=== PATIENT | male | born 1975 | race Hispanic/Latino ===

== ENCOUNTER 2020-04-25 22:04 | Observation (INO) | payer OTHER, MEDICARE ==
[2020-04-25 22:24] LABS: BASOPHILS % (AUTO) 0.6 % (0.0-5.0); EOSINOPHILS % (AUTO) 2.2 % (0.0-8.0); HEMATOCRIT 49.2 % (42-54); LYMPHOCYTES % (AUTO) 19.1 % (21.0-51.0); MEAN CORPUSCULAR HEMOGLOBIN 30.2 pg (27.0-33.0); MEAN CORPUSCULAR HGB CONC 32.5 g/dL (32.0-36.0); MEAN CORPUSCULAR VOLUME 92.8 fL (79-99); MONOCYTES % (AUTO) 10.5 % (3.0-13.0); NEUTROPHILS % (AUTO) 66.5 % (40.0-77.0); PLATELET COUNT (AUTO) 228 K/uL (130-400); RED CELL DISTRIBUTION WIDTH 12.7 % (11.0-15.5); WHITE BLOOD COUNT (AUTO) 8.5 K/uL (4.8-10.8)
[2020-04-25 22:35] LABS: CREATININE 1.1 mg/dL (0.5-1.5); POTASSIUM 4.2 mmol/L (3.5-5.1)
[2020-04-25 22:36] LABS: ABG HCO3 23.8 mmol/L (21.0-28.0); ABG OXYGEN SATURATION 94.9 % (95.0-99.0); ABG PCO2 40 mmHg (35-48)
[2020-04-25 22:37] LABS: INR 0.9 (0.85-1.15); PARTIAL THROMBOPLASTIN TIME 28.5 SEC (26.3-35.5); PROTHROMBIN TIME 9.8 SEC (9.6-11.6)
[2020-04-25 22:39] LABS: ALBUMIN 3.5 g/dL (3.5-5.0); BILIRUBIN,TOTAL 0.2 mg/dL (0.2-1.0); TOTAL PROTEIN, SERUM 7.4 g/dL (6.0-8.3)
[2020-04-25] MEDS ORDERED: CLOPIDOGREL BISULFATE 300 MG TAB ONE (23:47)
[2020-04-25] MEDS ORDERED: CEFTRIAXONE SODIUM 1 GM ONE (23:48)
[2020-04-25] MEDS ORDERED: AZITHROMYCIN 500MG+NS 250ML 250 ML IV ONE (23:48)
[2020-04-26] MEDS ORDERED: MORPHINE SULFATE 2 MG/ML 1ML SYG IV PRN
[2020-04-26] MEDS ORDERED: ONDANSETRON HCL 4 MG/2 ML VIAL IV PRN
[2020-04-26] MEDS ORDERED: ACETAMINOPHEN 325 MG TAB PO PRN ×2
[2020-04-26] MEDS ORDERED: LACTULOSE 20 GM/30 ML UDCUP PO PRN
[2020-04-26] MEDS ORDERED: NITROGLYCERIN 0.4 MG SL TAB SL PRN
[2020-04-26 00:14] LABS: APPEARANCE,URINE Clear (CLEAR); BILIRUBIN,URINE Negative (NEGATIVE); COLOR,URINE Yellow (YELLOW); GLUCOSE, URINE (UA) Negative (NEGATIVE); KETONES,URINE Negative (NEGATIVE); LEUKOCYTE ESTERASE ,URINE Negative (NEGATIVE); NITRATE,URINE Negative (NEGATIVE); OCCULT BLOOD,URINE Negative (NEGATIVE); PROTEIN,URINE Negative (NEGATIVE); UROBILINOGEN,URINE 0.2 mg/dL (0.2-1.0)
[2020-04-26 00:27] LABS: AMPHET/METH SCREEN,URINE NEGATIVE (NEGATIVE); BARBITURATE SCREEN, URINE NEGATIVE (NEGATIVE); BENZODIAZEPINES SCREEN,URINE NEGATIVE (NEGATIVE); CANNABINOID SCREEN,URINE NEGATIVE (NEGATIVE); COCAINE SCREEN,URINE NEGATIVE (NEGATIVE); OPIATE SCREEN,URINE NEGATIVE (NEGATIVE); PHENCYCLIDINE SCREEN,URINE NEGATIVE (NEGATIVE)
[2020-04-26 01:14] LABS: HEMOGLOBIN A1C 6.1 % (4.0-6.0)
[2020-04-26 01:26] LABS: THYROID STIMULATING HORMONE 0.84 uIU/mL (0.36-3.74)
[2020-04-26 05:33] LABS: BASOPHILS % (AUTO) 0.6 % (0.0-5.0); EOSINOPHILS % (AUTO) 2.2 % (0.0-8.0); HEMATOCRIT 47.1 % (42-54); LYMPHOCYTES % (AUTO) 16.8 % (21.0-51.0); MEAN CORPUSCULAR HEMOGLOBIN 30.4 pg (27.0-33.0); MEAN CORPUSCULAR HGB CONC 32.7 g/dL (32.0-36.0); MEAN CORPUSCULAR VOLUME 92.9 fL (79-99); MONOCYTES % (AUTO) 8.6 % (3.0-13.0); NEUTROPHILS % (AUTO) 70.6 % (40.0-77.0); PLATELET COUNT (AUTO) 201 K/uL (130-400); RED BLOOD CELL COUNT(AUTO) 5.07 MIL/uL (4.50-6.20); RED CELL DISTRIBUTION WIDTH 12.6 % (11.0-15.5); WHITE BLOOD COUNT (AUTO) 8.5 K/uL (4.8-10.8)
[2020-04-26 05:45] LABS: POTASSIUM 3.8 mmol/L (3.5-5.1)
[2020-04-26] MEDS ORDERED: ASPIRIN 81MG TAB.CHEW ONE (07:24)
[2020-04-26] MEDS ORDERED: METOPROLOL TARTRATE 25 MG TAB ONE (07:25)
[2020-04-26] MEDS ORDERED: FAMOTIDINE 20MG TAB 20 MG TAB ONE (07:25)
[2020-04-26] MEDS ORDERED: CLOPIDOGREL BISULFATE 75 MG TAB ONE (07:25)
[2020-04-26] MEDS ORDERED: CLOPIDOGREL BISULFATE 75 MG TAB PO SCH (09:00)
[2020-04-26] MEDS ORDERED: ASPIRIN 325 MG TABLET PO SCH (09:00)
[2020-04-26] MEDS ORDERED: FAMOTIDINE 20MG TAB 20 MG TAB PO SCH (09:00)
[2020-04-26] MEDS ORDERED: METOPROLOL TARTRATE 25 MG TAB PO SCH (09:00)
[2020-04-26] MEDS ORDERED: ATORVASTATIN CALCIUM 20 MG TABLET PO SCH (21:00)
== END 2020-04-26 10:59 | disposition left against medical advice (07) ==
LOC: EDH 22:04 → EDHIP 23:59
PROVIDERS: ADMIT Family Medicine; ATTEND Family Medicine
DX: R07.89 Other chest pain (principal); Z20.828 Contact with and (suspected) exposure to other viral communicable diseases; R06.03 Acute respiratory distress; R09.02 Hypoxemia; I11.0 Hypertensive heart disease with heart failure; I50.9 Heart failure, unspecified; E66.01 Morbid (severe) obesity due to excess calories; E11.9 Type 2 diabetes mellitus without complications; I25.2 Old myocardial infarction; F41.9 Anxiety disorder, unspecified; F32.9 Major depressive disorder, single episode, unspecified; F17.210 Nicotine dependence, cigarettes, uncomplicated; Z79.899 Other long term (current) drug therapy
CPT/HCPCS: 36415 ×2; 36600; 71045; 80048; 80053; 80061; 80305; 81003; 82550; 82803; 82948; 83036; 83605; 83690; 83880; 84443; 84484 ×4; 85025 ×2; 85610; 85730; 87040 ×2; 87426; 87804 ×2; 93005 ×3; 99291; G0378 ×11; J0456; J0696; U0003

== ENCOUNTER → 2020-06-21 | Outpatient (CLI) | payer OTHER, MEDICARE | END | disposition home or self-care (01) | LOC: SLP 20:58 | PROVIDERS: ATTEND Internal Medicine | DX: G47.33 Obstructive sleep apnea (adult) (pediatric) (principal); R40.0 Somnolence | CPT/HCPCS: 95810 ==

== ENCOUNTER → 2020-08-01 | Outpatient (CLI) | payer MEDICARE, OTHER | END | disposition home or self-care (01) | LOC: SHCH 13:56 | PROVIDERS: ATTEND Internal Medicine | DX: I50.9 Heart failure, unspecified (principal) | CPT/HCPCS: 93306; 93356 ==

== ENCOUNTER 2020-10-16 07:05 | Observation (INO) | payer OTHER ==
[2020-10-14 15:40] LABS: BASOPHILS % (AUTO) 0.5 % (0.0-5.0); EOSINOPHILS % (AUTO) 2.5 % (0.0-8.0); HEMATOCRIT 51.7 % (42-54); LYMPHOCYTES % (AUTO) 20.6 % (21.0-51.0); MEAN CORPUSCULAR HEMOGLOBIN 30.5 pg (27.0-33.0); MEAN CORPUSCULAR HGB CONC 32.7 g/dL (32.0-36.0); MEAN CORPUSCULAR VOLUME 93.2 fL (79-99); MONOCYTES % (AUTO) 9.5 % (3.0-13.0); NEUTROPHILS % (AUTO) 65.9 % (40.0-77.0); PLATELET COUNT (AUTO) 221 K/uL (130-400); RED BLOOD CELL COUNT(AUTO) 5.55 MIL/uL (4.50-6.20); WHITE BLOOD COUNT (AUTO) 8.3 K/uL (4.8-10.8)
[2020-10-14 15:48] LABS: CREATININE 1.4 mg/dL (0.5-1.5); POTASSIUM 4.1 mmol/L (3.5-5.1)
[2020-10-14 15:50] LABS: PROTHROMBIN TIME 10.9 SEC (9.6-11.6)
[2020-10-14 15:51] LABS: PARTIAL THROMBOPLASTIN TIME 28.3 SEC (26.3-35.5)
[~2020-10-16] VITALS: Ht 172.7 cm; Wt 190.5 kg
[2020-10-16] VITALS (26 sets, daily range): BP systolic 14–182; BP diastolic 48–100
[2020-10-16] MEDS: CEFAZOLIN SODIUM 1 GM VIAL IVP SCH ×2 (06:00→07:38)
[~2020-10-16 07:05] MED LIST: BUME1TAB7 PO; CARV6.25 PO; CYAN-35 PO; GLUC100019 PO; LOSA100T58 PO; MULT-1367 PO; NITR0.4T50 SL; POTA20TA82 PO; SODIUM CHLORIDE 0.9% 500ML 500 ML IV SCH; SPIR25TA6 PO; UBID200C18 PO; VIT1CAPS PO
[2020-10-16] MEDS ORDERED: SODIUM CHLORIDE 0.9% 1000ML 1,000 ML IV ONE (07:07)
[2020-10-16 07:30] LABS: ABG BASE EXCESS 3.6 mmol/L (-2.0-3.0); ABG HCO3 29.5 mmol/L (21.0-28.0); ABG PCO2 49 mmHg (35-48)
[2020-10-16] MEDS ORDERED: SUCCINYLCHOLINE 200MG/10ML SYR ONE (09:11)
[2020-10-16] MEDS ORDERED: PROPOFOL 10 MG/ML 20ML VIAL IV ONE (09:12)
[2020-10-16] MEDS ORDERED: FENTANYL CITRATE PF 50 MCG/1 ML 2ML VIAL ONE (09:12)
[2020-10-16] MEDS ORDERED: ROCURONIUM 10MG/1ML SYR 10 MG/ML ML ONE (09:12)
[2020-10-16] MEDS ORDERED: CEFAZOLIN SODIUM 1 GM VIAL ONE (09:16)
[2020-10-16] MEDS ORDERED: LIDOCAINE HCL 1% MDV 50ML VIAL ONE (09:16)
[2020-10-16] MEDS ORDERED: BUPIVACAINE/PF 0.25% 30ML VIAL IJ ONE (09:16)
[2020-10-16] MEDS ORDERED: LIDOCAINE HCL-MPF 1% 2ML VIAL ONE (09:44)
[2020-10-16] MEDS ORDERED: IODIXANOL 320 MG/ML 100 ML VIAL ONE ×2 (10:04→10:05)
[2020-10-16 10:10] LABS: ABG BASE EXCESS 1.7 mmol/L (-2.0-3.0); ABG HCO3 28.9 mmol/L (21.0-28.0); ABG OXYGEN SATURATION 99.2 % (95.0-99.0); ABG PCO2 55 mmHg (35-48)
[2020-10-16] MEDS ORDERED: PHENYLEPHRINE HCL 10 MG/ML 1ML VIAL IV ONE ×3 (10:25→12:56)
[2020-10-16] MEDS ORDERED: ROCURONIUM BROMIDE 10MG/1ML 5ML VL ONE (11:50)
[2020-10-16] MEDS ORDERED: SUGAMMADEX SODIUM 200 MG/2 ML VIAL IV ONE (13:23)
[2020-10-16] MEDS ORDERED: KETOROLAC 30MG VIAL (30MG/ML) ONE (13:49)
[2020-10-16] MEDS ORDERED: ACETAMINOPHEN 325 MG TAB PO PRN (15:15)
[2020-10-16] MEDS ORDERED: LACTULOSE 20 GM/30 ML UDCUP PO PRN (15:15)
[2020-10-16] MEDS ORDERED: ONDANSETRON HCL 4 MG/2 ML VIAL IV PRN (15:15)
[2020-10-16] MEDS: KCL 20 MEQ ERTAB PO SCH (21:16)
[2020-10-16] MEDS: BUMETANIDE 1 MG TAB PO SCH (21:17)
[2020-10-16] MEDS: CARVEDILOL 6.25 MG TABLET PO SCH (21:17)
[2020-10-17] VITALS (11 sets, daily range): BP systolic 103–159; BP diastolic 57–97
[2020-10-17] MEDS: ACETAMINOPHEN 325 MG TAB PO PRN ×2 (00:57→04:58)
[2020-10-17 04:06] LABS: BASOPHILS % (AUTO) 0.3 % (0.0-5.0); EOSINOPHILS % (AUTO) 0.9 % (0.0-8.0); HEMATOCRIT 46.9 % (42-54); MEAN CORPUSCULAR HEMOGLOBIN 30.7 pg (27.0-33.0); MEAN CORPUSCULAR VOLUME 92.9 fL (79-99); MONOCYTES % (AUTO) 10.6 % (3.0-13.0); NEUTROPHILS % (AUTO) 74.3 % (40.0-77.0); PLATELET COUNT (AUTO) 173 K/uL (130-400); RED BLOOD CELL COUNT(AUTO) 5.05 MIL/uL (4.50-6.20); RED CELL DISTRIBUTION WIDTH 13.3 % (11.0-15.5); WHITE BLOOD COUNT (AUTO) 10.2 K/uL (4.8-10.8)
[2020-10-17 04:22] LABS: CREATININE 1.4 mg/dL (0.5-1.5); POTASSIUM 4.3 mmol/L (3.5-5.1)
[2020-10-17] MEDS ORDERED: LOSARTAN 100 MG TABLET PO SCH (09:00)
[2020-10-17] MEDS ORDERED: SPIRONOLACTONE 25 MG TAB PO SCH (09:00)
[2020-10-17] MEDS ORDERED: NITROGLYCERIN 0.4 MG SL TAB SL SCH (09:00)
[2020-10-17] MEDS: CARVEDILOL 6.25 MG TABLET PO SCH (09:17)
[2020-10-17] MEDS: BUMETANIDE 1 MG TAB PO SCH (09:18)
[2020-10-17] MEDS: KCL 20 MEQ ERTAB PO SCH (09:18)
== END 2020-10-17 13:00 | disposition home or self-care (01) ==
LOC: DAH 07:05 → DAHIP 07:06 → 2DH 14:15
PROVIDERS: ADMIT Family Medicine; ATTEND Family Medicine
DX: I25.5 Ischemic cardiomyopathy (principal); Z20.822 Contact with and (suspected) exposure to COVID-19; I44.7 Left bundle-branch block, unspecified; I11.0 Hypertensive heart disease with heart failure; I50.22 Chronic systolic (congestive) heart failure; G47.33 Obstructive sleep apnea (adult) (pediatric); E66.01 Morbid (severe) obesity due to excess calories; F17.200 Nicotine dependence, unspecified, uncomplicated; Z95.810 Presence of automatic (implantable) cardiac defibrillator; Z79.899 Other long term (current) drug therapy; Z68.44 Body mass index [BMI] 60.0-69.9, adult
CPT/HCPCS: 33225; 33249; 36415 ×2; 36600; 71045 ×2; 80048 ×2; 82435; 82803 ×2; 82947; 83605; 84132; 84295; 85018; 85025 ×2; 85610; 85730; 87635; 94660; 96360; 96361; A4215; A4216; A4221; A4222; A4223 ×3; A4606; A4663; C1769 ×4; C1882; C1895; C1896; C1900; C9803; G0378 ×23; J0330; J0690 ×2; J1885; J2370 ×3; J2704; J3010; J3490 ×4; J7030; Q9967 ×2

== ENCOUNTER 2024-07-18 05:58 | Day surgery (SDC) | payer OTHER ==
[2024-07-13 14:15] VITALS: BP 161/68; PULSE 73; RESP 16; TEMP 97.6
[2024-07-13 14:24] LABS: BASOPHILS # (AUTO) 0.06 K/uL (0.00-0.20); BASOPHILS % (AUTO) 0.8 % (0.0-5.0); EOSINOPHILS # (AUTO) 0.27 K/uL (0.00-0.70); EOSINOPHILS % (AUTO) 3.6 % (0.0-8.0); HEMATOCRIT 50.5 % (42-54); IMMATURE GRANULOCYTE ABSOLUTE 0.03 K/uL (0-1); LYMPHOCYTES % (AUTO) 27.3 % (21.0-51.0); MEAN CORPUSCULAR HEMOGLOBIN 31.1 pg (27.0-33.0); MEAN CORPUSCULAR HGB CONC 33.9 g/dL (32.0-36.0); MONOCYTES # (AUTO) 0.7 K/uL (0.1-1.0); MONOCYTES % (AUTO) 8.9 % (3.0-13.0); NEUTROPHILS # (AUTO) 4.4 K/uL (1.8-7.7); PLATELET COUNT (AUTO) 225 K/uL (130-400); RED BLOOD CELL COUNT(AUTO) 5.49 MIL/uL (4.50-6.20); RED CELL DISTRIBUTION WIDTH 12.7 % (11.0-15.5); WHITE BLOOD COUNT (AUTO) 7.4 K/uL (4.8-10.8)
[2024-07-13 14:46] LABS: INR 1.05 (0.85-1.15); PROTHROMBIN TIME 11.1 SEC (9.6-11.6)
[2024-07-13 14:48] LABS: PARTIAL THROMBOPLASTIN TIME 30.6 SEC (26.3-35.5)
[2024-07-13 15:35] LABS: POTASSIUM 4.3 mmol/L (3.5-5.1)
[2024-07-18] VITALS (17 sets, daily range): BP systolic 126–140; BP diastolic 60–83; PULSE 70–83; RESP 16–18; TEMP 97.6–97.8
[~2024-07-18] VITALS: Ht 172.7 cm; Wt 157.5 kg
[~2024-07-18 05:58] MED LIST changes: -CYAN-35 PO; -GLUC100019 PO; +HYDR-3422 PO; -LOSA100T58 PO; +LOSA100T59 PO; -MULT-1367 PO; -NITR0.4T50 SL; +POTA-202 PO; -POTA20TA82 PO; +SEMA2PEN SQ; -SODIUM CHLORIDE 0.9% 500ML 500 ML IV SCH; -SPIR25TA6 PO; +TRAZ-185 PO; -UBID200C18 PO; -VIT1CAPS PO
[2024-07-18] MEDS ORDERED: ketaMINE 50MG/ML SYRINGE 50 MG/ML DISP.SYRIN ONE (07:10)
[2024-07-18] MEDS ORDERED: dexaMETHasone SOD PHOSPHATE 10MG/ML 1ML VIAL ONE (07:11)
[2024-07-18] MEDS ORDERED: NEOSTIGMINE METHYLSULFATE 1MG/ML IV ONE (07:11)
[2024-07-18] MEDS ORDERED: SUCCINYLCHOLINE CHLORIDE 20 MG/ML 10 ML VIAL ONE (07:11)
[2024-07-18] MEDS ORDERED: rocuRONium bROMide 10MG/1ML 5ML VL ONE (07:11)
[2024-07-18] MEDS ORDERED: LIDOCAINE PF 100MG/5ML (2%) SYRINGE 5ML ONE (07:11)
[2024-07-18] MEDS ORDERED: FENTanyl CITRate PF 50 MCG/1 ML 2ML VIAL ONE (07:11)
[2024-07-18] MEDS ORDERED: proPOFol 10 MG/ML 20ML VIAL IV ONE ×2 (07:11→07:13)
[2024-07-18] MEDS ORDERED: GLYCOPYRROLATE 0.2 MG/ML 5 ML VIAL ONE (07:11)
[2024-07-18] MEDS ORDERED: ondanSETRON 4MG INJ ONE (07:11)
[2024-07-18] MEDS ORDERED: MIDAZOLAM HCL 1 MG/ML 2ML VIAL ONE (07:12)
[2024-07-18] MEDS ORDERED: BUPIvacaine/PF 0.25% 30ML VIAL IJ ONE (07:25)
[2024-07-18] MEDS ORDERED: LIDOCAINE HCL 1% MDV 50ML VIAL ONE (07:25)
[2024-07-18] MEDS ORDERED: ceFAZolin SODIUM 1 GM VIAL ONE ×3 (07:26→07:50)
--- NOTE | 2024-07-18 07:28 | EKG ---
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
[2024-07-18] MEDS ORDERED: FAMOTIDINE 20MG VIAL IV ONE (07:29)
[2024-07-18] MEDS ORDERED: SUGAMMADEX SODIUM 200 MG/2 ML VIAL IV ONE (07:29)
[2024-07-18] MEDS: 0.9%NACL 1000ML 1,000 ML IV ONE (07:39)
[2024-07-18] MEDS ORDERED: hydroCORTisone SOD SUCCINATE 100 MG/2 ML VIAL ONE (08:31)
[2024-07-18] MEDS ORDERED: BACITRACIN 1 EACH PACKET TP ONE (08:45)
[2024-07-18] MEDS ORDERED: TRAM50TA4 PO (09:07)
[2024-07-18] MEDS ORDERED: acetaMINOPHEN WITH coDEINE 1 TAB TAB PO PRN ×2 (09:30)
[2024-07-18] MEDS ORDERED: acetaMINOPHEN 500 MG TABLET PO PRN (09:30)
--- NOTE | 2024-07-18 10:08 | NUR ---
SCANT AMOUNT OF BLOOD NOTED TO DRESSING ON LEFT CHEST
--- NOTE | 2024-07-18 11:30 | NUR ---
REAGAN PT AND GIVEN VERBAL AND WRITTEN DISCHARGE INSTRUCTIONS. WOUND CARE DEMONSTRATED TO BOTH FOR DRESSING CHANGE. SCANT AMOUNT OF BLOOD NOTED AND SHOWN TO BOTH PT AND WAS TOLD IF IT STARTS GETTING WORSE OR A HEMATOMA APPEARS TO CALL DR. RONQUILLO OFFICE FOR FURTHER INSTRUCTIONS.
== END 2024-07-18 11:46 | disposition home or self-care (01) ==
LOC: DAH 05:58
PROVIDERS: ATTEND Internal Medicine Cardiovascular Disease
DX: Z45.02 Encounter for adjustment and management of automatic implantable cardiac defibrillator (principal); T82.111A Breakdown (mechanical) of cardiac pulse generator (battery), initial encounter; I42.8 Other cardiomyopathies; I11.0 Hypertensive heart disease with heart failure; I50.22 Chronic systolic (congestive) heart failure; E66.01 Morbid (severe) obesity due to excess calories; J44.9 Chronic obstructive pulmonary disease, unspecified; G47.33 Obstructive sleep apnea (adult) (pediatric); Z68.43 Body mass index [BMI] 50.0-59.9, adult; Z79.01 Long term (current) use of anticoagulants; Z79.899 Other long term (current) drug therapy; Y71.2 Prosthetic and other implants, materials and accessory cardiovascular devices associated with adverse incidents
CPT/HCPCS: 80048; 85025; 85610; 85730; 36415; 33264; 93005; C1882; J3490 ×5; J3010; J0690 ×3; J1100; J0330; J7030; J0665; J1720; J2003; J2250; J2704 ×2; J2405; J2710; A4215; A4222; A4221; A4663; A4216; A4606; A4223 ×3